=== PATIENT | female | born 1950 | race Caucasian/White ===

== ENCOUNTER 2021-01-25 08:07 | Emergency (ER) | payer OTHER ==
[~2021-01-25] VITALS: Ht 165.1 cm; Wt 40.8 kg
[2021-01-25] MEDS ORDERED: CARDIZEM120 MG PO (08:15)
[2021-01-25] MEDS ORDERED: CELEXA 20 MG TA20 MG PO (08:16)
[2021-01-25] MEDS ORDERED: ASA81BEC PO (08:16)
[2021-01-25] MEDS ORDERED: VITAMIN D-40010 MCG (08:16)
[2021-01-25] MEDS ORDERED: VITAMIN B-121000 MC2 SUBLING (08:16)
[2021-01-25] MEDS ORDERED: CRESTOR10 MG PO (08:16)
[2021-01-25] MEDS ORDERED: XANAX2 MG PO (08:17)
[2021-01-25 08:44] LABS: ABSOLUTE BASOPHILS 0.1 thou/uL (0.0-0.2); ABSOLUTE EOSINOPHILS 0.2 thou/uL (0.0-0.7); ABSOLUTE LYMPHOCYTES 1.9 thou/uL (0.8-5.3); ABSOLUTE MONOCYTES 0.5 thou/uL (0.0-1.2); ABSOLUTE NEUTROPHILS 6.8 thou/uL (1.6-8.1); BASOPHILS 0.6 %; EOSINOPHILS 1.9 %; HEMOGLOBIN 13.3 gm/dL (12.0-15.0); LYMPHOCYTES 19.9 %; MCH 30.8 pg (26.0-34.0); MCV 90.6 fL (80.0-100.0); MONOCYTES 5.3 %; MPV 8.6 fl. (7.2-11.1); NUCLEATED RBCS 0 /100WBC; PLATELET COUNT* 265 thou/uL (150-400); POLYS 72.3 %; RBC 4.31 mil/uL (4.20-5.00); RDW-CV 13.8 % (10.5-14.5); WBC 9.4 thou/uL (4.0-11.0)
[2021-01-25 08:47] LABS: CREATININE 0.7 mg/dL (0.6-1.3); POTASSIUM 3.9 mmol/L (3.5-5.1)
[2021-01-25 08:52] LABS: ALBUMIN 4.4 g/dL (3.4-5.0); TOTAL BILIRUBIN 0.5 mg/dL (<0.1-1.0); TOTAL PROTEIN 7.8 g/dL (6.4-8.2)
[2021-01-25] MEDS ORDERED: PROAIR HFA8.5 GM INH ×2 (09:57→10:06)
[2021-01-25] MEDS ORDERED: PREDNISONE 20 M20 M1 PO ×2 (09:57→10:06)
[2021-01-25 10:12] VITALS: BP 126/56
== END 2021-01-25 10:13 | disposition home or self-care (01) ==
LOC: M.ERS 08:07
PROVIDERS: Emergency Medicine
DX: J44.1 Chronic obstructive pulmonary disease with (acute) exacerbation (principal); Z88.8 Allergy status to other drugs, medicaments and biological substances; Z88.6 Allergy status to analgesic agent; Z79.82 Long term (current) use of aspirin; Z79.899 Other long term (current) drug therapy